=== PATIENT | female | born 1945 | race Caucasian/White ===

== ENCOUNTER → 2017-05-08 | Outpatient (CLI) | payer OTHER | LOC: BRMIMAGING 14:17 | PROVIDERS: ATTEND Family Medicine | DX: Z13.820 Encounter for screening for osteoporosis (principal); M81.0 Age-related osteoporosis without current pathological fracture; Z78.0 Asymptomatic menopausal state ==

== ENCOUNTER 2018-01-03 14:07 | Emergency (ER) | payer OTHER ==
[2018-01-03] MEDS ORDERED: IBUPROFEN 200 MG TAB PO ONE ×2 (14:25→14:29)
--- NOTE | 2018-01-03 14:31 | EDPHY ---
H & P Stated Complaint: rt knee injury,d/t fall last week but today tripped on chair "heard pop" Time Seen by Provider: 01/03/18 14:13 HPI/ROS: CHIEF COMPLAINT: Knee pain HISTORY OF PRESENT ILLNESS: This is a 72-year-old female who presents after falling and injuring her right knee. She tells me that last week, while walking up the stairs, she heard a pop in her right knee. This was followed by pain. Initially she was using ice and heat. She saw her primary care physician and was told that this was likely arthritis. She has been taking anti -inflammatory medication and felt that the knee was improving. However, today she caught her leg in a chair and fell, landing on her left side. She believes that she might have twisted her right knee. She now has significant pain with weight-bearing. She denies other injuries. REVIEW OF SYSTEMS: A ten point review of systems was performed and is negative with the exception of the items mentioned in the HPI. Past medical history: Osteoporosis Past surgical history: ORIF right ankle Social history: She lives alone, with 2 sons in the area. She does not use tobacco products. She is . She is retired. General Appearance: Alert. Vital signs reviewed. Head: Normocephalic atraumatic. Neck: Nontender to palpation over the cervical spine in the midline. Respiratory: Lungs are clear to auscultation; no wheezes, rales, or rhonchi. Cardiovascular: Regular rate and rhythm; no murmur, rub, or gallop. Gastrointestinal: Abdomen is soft and nontender, no masses or organomegaly, bowel sounds normal. Skin: Warm and dry, no rashes on exposed skin, normal color. Pulses: 2+ dorsalis pedis and tibialis posterior pulses on the right. Back: Nontender to palpation over the thoracolumbar spine. No CVAT. Extremities: Aside from the right knee there is no other bony tenderness. She has swelling medially in the right knee and tenderness with palpation of the lateral joint line. She is able to flex her knee to 45 degrees, beyond which she experiences pain. She has full extension. No obvious ligamentous instability to provocative testing but provocative testing is difficult due to her pain and the acuteness of her injury. Neurological: Alert and oriented. Normal sensation over the right lower extremity. Psychiatric: Normal affect. - Personal History Tetanus Vaccine Date: 2012 - Medical/Surgical History Hx Asthma: No Hx Chronic Respiratory Disease: No Hx Diabetes: No Hx Cardiac Disease: No Hx Renal Disease: No Hx Cirrhosis: No Hx Alcoholism: No Hx HIV/AIDS: No Hx Splenectomy or Spleen Trauma: No Other PMH: Med hx-osteoporosis,. Surg-rt ankle-screws/plate - Social History Smoking Status: Never smoked Constitutional: Initial Vital Signs Temperature (C) 36.8 C 01/03/18 14:19 Heart Rate 80 01/03/18 14:19 Respiratory Rate 16 01/03/18 14:19 Blood Pressure 137/76 H 01/03/18 14:19 O2 Sat (%) 96 01/03/18 14:19 O2 Delivery Mode Room Air Allergies/Adverse Reactions: Sulfa (Sulfonamide Antibiotics) Allergy (Intermediate, Verified 01/03/18 14:16) pruitic rash Home Medications: Medication Instructions Recorded Aspirin 325 mg (*) 01/03/18 Hydrocodone/APAP 5/325 [[place] 1 - 2 tab PO Q4 PRN #10 tab 01/03/18 5/325 (RX)] Multivitamins 01/03/18 Osteoporosis Med(Alternate?) 01/03/18 Medical Decision Making - Diagnostics Imaging Results: Imaging Impressions Knee X-Ray 01/03/18 14:16 Impression: No fracture. Knee joint effusion. ED Course/Re-evaluation: 72-year-old female with apparent knee sprain. No fracture or dislocation on x- rays, effusion present. Provocative testing is difficult due to the acuteness of her injury. She is being placed in a knee brace and will use crutches. I am recommending follow up with her PCP and an orthopedist as needed. Rice therapy and continued NSAIDs. She is given a prescription for a small quantity of [place] to use if needed. Differential Diagnosis: I considered a differential diagnosis that includes but is not limited to fracture, dislocation, sprain, strain, and contusion. - Data Points Medications Given: Discontinued Medications Ibuprofen (Motrin) 800 mg PO EDNOW ONE Stop: 01/03/18 14:26 Last Admin: 01/03/18 14:28 Dose: Not Given Ibuprofen (Motrin) 400 mg PO EDNOW ONE Stop: 01/03/18 14:30 Last Admin: 01/03/18 14:46 Dose: 400 mg Departure - Departure Disposition: Home, Routine, Self-Care Clinical Impression: Right knee sprain Qualifiers: Encounter type: initial encounter Involved ligament of knee: unspecified ligament Qualified Code(s): S83.91XA - Sprain of unspecified site of right knee , initial encounter Condition: Good Instructions: Knee Sprain (ED), Crutch Instructions (ED), R.I.C.E. Treatment ( ED), Knee Immobilizer (ED) Additional Instructions: I do not see evidence of a broken bone or dislocated bone on your x-ray. As we discussed, the x-ray does not show the ligaments. Use the knee brace as advised and crutches as needed. Follow up with her primary care physician next week. If you are not improving he may need to see an orthopedist. Continue to ice and elevate as much as possible. Adult Pain & Fever Control: We recommend Acetaminophen (Tylenol) and Ibuprofen (Motrin,Advil) for pain and fever control. When fever is high or pain severe, both drugs can be used at the same time, but at different intervals. Please note the time differences. Your dose is: Acetaminophen 650mg every 4 to 6 hours Ibuprofen 400mg every 8 hours with food Note: do not take Acetaminophen with Hydrocodone (Vicodin, Lortab) or Oycodone (Percocet)--if you do need to write down when you take your medication because these medications also contain Acetaminophen. Do not take more than 3000mg of Acetaminophen in 24 hours (for an adult). I am writing a prescription for small quantity of Vicodin, also called [place]. This medicine contains hydrocodone which is an opiate pain medication. Please be careful while taking it and do not drive or engage in other potentially dangerous activities. You will not be able to receive a refill for this medication from the emergency department. Referrals: Colin Lambert DO [Primary Care Provider] - As per Instructions Nilam Fernandez MD [Medical Doctor] - As per Instructions Prescriptions: Hydrocodone/APAP 5/325 [[place] 5/325 (RX)] 1 - 2 tab PO Q4 PRN #10 tab PRN Reason: pain
[2018-01-03] MEDS ORDERED: HYDROCOD/APAP 5/325 PREPACK#6 BTL TAKEHOME ONE (16:16)
[2018-01-03 16:53] VITALS: BP 121/69
== END 2018-01-03 16:45 | disposition home or self-care (01) ==
LOC: CED 14:07
DX: S83.91XA Sprain of unspecified site of right knee, initial encounter (principal); W01.0XXA Fall on same level from slipping, tripping and stumbling without subsequent striking against object, initial encounter; Y99.8 Other external cause status; Y93.01 Activity, walking, marching and hiking
CPT/HCPCS: 73564; 99283; L1830

== ENCOUNTER → 2018-01-15 | Outpatient (CLI) | payer OTHER | LOC: BRMIMAGING 13:01 | PROVIDERS: ATTEND Family Medicine | DX: Z12.31 Encounter for screening mammogram for malignant neoplasm of breast (principal) ==

== ENCOUNTER → 2018-08-28 | Outpatient (CLI) | payer OTHER | LOC: CIMAGING 13:30 | PROVIDERS: ATTEND Family Medicine | DX: R92.0 Mammographic microcalcification found on diagnostic imaging of breast (principal) ==